=== PATIENT | male | born 1980 | race African-American/Black ===

== ENCOUNTER 2017-11-08 22:06 | Emergency (ER) | payer SELFPAY ==
[~2017-11-08] VITALS: Ht 167.6 cm; Wt 70.0 kg
[2017-11-08 23:01] VITALS: BP 138/97; PULSE 70; RESP 16; TEMP 99.5; O2SAT 99
[2017-11-09] MEDS ORDERED: TETANUS/DIPHTHERIA TOXOID ADULT 0.5 ML VIAL IM ONE (01:15)
[2017-11-09] MEDS ORDERED: ACETAMINOPHEN/HYDROcodone 325 MG/5 MG TAB PO ONE (01:15)
[2017-11-09] MEDS ORDERED: CEPH-460 PO (01:17)
[2017-11-09] MEDS ORDERED: NORC5TAB PO (01:17)
[2017-11-09] MEDS ORDERED: BACT800T5 PO (01:17)
[2017-11-09] MEDS ORDERED: IBUP1TAB7 PO (01:17)
--- NOTE | 2017-11-09 01:17 | PD ---
HPI Chief Complaint: Skin Problem Time Seen by Provider: 00:49 Travel History International Travel<30 days: No Contact w/Intl Traveler<30days: No Traveled to known affect area: No History of Present Illness HPI 37-year-old male with no significant medical history presents emergency department for evaluation of a painful lesion on his left buttock. Patient states he noticed it 2 days ago. It is increased in size and he is unable to sit on his left buttock without significant pain. He has had no fever or chills. Reports no drainage from the site. Does not recall injury or insect bite. He has no other symptoms to report. PFS Past Medical History Medical History: Denies Significant Hx Cardiovascular Problems: No Diminished Hearing: No Genitourinary: No Musculoskeletal: No Neurologic: No Reproductive: No Respiratory: No Immunizations Current: Yes Tetanus Vaccination: < 5 Years Influenza Vaccination: No Past Surgical History Other Surgery: Yes (PLATE BEHIND RIGHT EYE) Social History Alcohol Use: Yes (SOCIAL) Tobacco Use: No Substance Use: Yes (MARIJUANA) Allergies-Medications (Allergen,Severity, Reaction): Coded Allergies: No Known Allergies (Verified Adverse Reaction, Unknown, 11/08/17) Reported Meds & Prescriptions Reported Meds & Active Scripts Active [place] (Hydrocodone-Acetaminophen) 5 Mg-325 Mg Tab 1 Tab PO Q6H PRN Ibuprofen 800 Mg Tab 800 Mg PO Q8H PRN Keflex (Cephalexin) 500 Mg Cap 500 Mg PO Q6H 5 Days Bactrim DS (Sulfamethoxazole-Trimethoprim) 800-160 Mg Tab 1 Tab PO BID Review of Systems Except as stated in HPI: all other systems reviewed are Neg Physical Exam Narrative GENERAL: Well-nourished, well-developed male patient in no acute distress SKIN: There is an indurated area in the left buttock which measures about 3 cm in diameter. It is fluctuant but there is no pointing or drainage. There is a zone of inflammation around it but no lymphangitis. HEAD: Normocephalic. EYES: No scleral icterus. No injection or drainage. NECK: Supple, trachea midline. No JVD or lymphadenopathy. CARDIOVASCULAR: Regular rate and rhythm without murmurs, gallops, or rubs. RESPIRATORY: Breath sounds equal bilaterally. No accessory muscle use. GASTROINTESTINAL: Abdomen soft, non-tender, nondistended. MUSCULOSKELETAL: No cyanosis, or edema. BACK: Nontender without obvious deformity. No CVA tenderness. Data Data Last Documented VS Vital Signs Date Time Temp Pulse Resp B/P (MAP) Pulse Ox O2 Delivery O2 Flow Rate FiO2 11/08/17 23:01 99.5 70 16 138/97 (111) 99 Orders Orders Acetamin-Hydrocod 325-5 Mg ([place] 5-325 (11/09/17 01:15) Tetanus/Diphtheria Tox Adult (Tetanus/Di (11/09/17 01:15) Wound Culture And Gram Stain (11/09/17 01:14) Ed Discharge Order (11/09/17 01:15) [facility] Medical Decision Making Medical Screen Exam Complete: Yes Emergency Medical Condition: Yes Medical Record Reviewed: Yes Differential Diagnosis Abscess versus erysipelas versus cellulitis versus insect bite versus folliculitis Narrative Course 37-year-old male presents emergency department for evaluation of a painful lesion to his left buttock. Physical exam is consistent with an abscess. I&D is complete. Patient be started on oral antibiotics. He is counseled on care. He agrees to return immediately with any worsening symptoms. Procedures Procedure Narrative INCISION AND DRAINAGE OF ABSCESS: The area was prepped and was sterilely draped. Topical ethyl chloride was used to anesthetize the area. The area was properly anesthetized. A number 11 scalpel was used to make a 1-cm incision across the area of the abscess. Cultures were obtained. The abscess was drained an irrigated with normal saline. Sterile dressing applied. Diagnosis Primary Impression: Abscess Referrals: Primary Care Physician Patient Instructions: Abscess (ED), General Instructions Additional Instructions: Warm compresses to the affected area Follow-up with a primary care provider Return immediately with acute worsening symptoms Med/Other Pt SpecificInfo: Prescription(s) given Scripts Hydrocodone-Acetaminophen ([place]) 5 Mg-325 Mg Tab 1 TAB PO Q6H Y for PAIN GREATER THAN 6, #12 TAB 0 Refills Prov: Shirley Stevenson 11/09/17 Ibuprofen (Ibuprofen) 800 Mg Tab 800 MG PO Q8H Y for Pain/Inflammation, #30 TAB 0 Refills Prov: Shirley Stevenson 11/09/17 Cephalexin (Keflex) 500 Mg Cap 500 MG PO Q6H for Infection for 5 Days, #20 CAP 0 Refills Prov: Shirley Stevenson 11/09/17 Sulfamethoxazole-Trimethoprim (Bactrim DS) 800-160 Mg Tab 1 TAB PO BID for Infection, #20 TAB 0 Refills Prov: Shirley Stevenson 11/09/17 Disposition: 01 DISCHARGE HOME Condition: Stable Shirley Stevenson Nov 09, 2017 01:17
== END 2017-11-09 01:36 | disposition home or self-care (01) ==
LOC: NEPD 22:06
DX: L02.31 Cutaneous abscess of buttock (principal); B95.62 Methicillin resistant Staphylococcus aureus infection as the cause of diseases classified elsewhere; F12.90 Cannabis use, unspecified, uncomplicated
CPT/HCPCS: 10060; 86403; 87070; 87186; 90471

== ENCOUNTER 2017-11-26 03:10 | Emergency (ER) | payer SELFPAY ==
[~2017-11-26] VITALS: Ht 167.6 cm; Wt 70.0 kg
[~2017-11-26 03:10] MED LIST: BACT800T5 PO; CEPH-460 PO; IBUP1TAB7 PO; NORC5TAB PO
[2017-11-26 03:15] VITALS: BP 118/78; PULSE 79; RESP 16; TEMP 97.7; O2SAT 96
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
== END 2017-11-26 03:38 | disposition left against medical advice (07) ==
LOC: NEPD 03:10
DX: M25.512 Pain in left shoulder (principal)
CPT/HCPCS: 99281